=== PATIENT | female | born 1995 | race Caucasian/White ===

== ENCOUNTER 2017-07-09 21:27 | Emergency (ER) | payer OTHER ==
[~2017-07-09] VITALS: Ht 154.9 cm; Wt 88.4 kg
[2017-07-09 21:38] VITALS: TEMP 36.8; Ht 154.9 cm; Wt 88.4 kg
[2017-07-09] MEDS ORDERED: SODIUM CHLORIDE 0.9% 1000ML 1,000 ML IV STA (21:56)
[2017-07-09] MEDS ORDERED: KETOROLAC TROMETHAMINE 30 MG/ML VIAL IV STA (21:56)
[2017-07-09 22:20] LABS: BASO % 0.3 %; BASO ABS # 0.03 K/uL (0-0.2); COMPLETE YES; EOS % 2.3 %; HEMATOCRIT 35.4 % (37-47); IG% 0.2 %; LYMPH % 36.6 %; MEAN CELL VOLUME 76.1 fL (80-100); MEAN CORPUSCULAR HEMOGLOBIN 23.9 pg (25-34); MEAN CORPUSCULAR HGB CONC 31.4 g/dl (32-36); MONO % 6.9 %; NEUT % 53.7 %; PLATELET COUNT 307 K/uL (130-400); RED BLOOD COUNT 4.65 M/uL (4.2-5.4); WHITE BLOOD COUNT 10.65 K/uL (4.8-10.8)
[2017-07-09 22:43] LABS: ALT/SGPT 15 U/L (12-78); BLOOD UREA NITROGEN 22 mg/dl (7-18); BUN/CREATININE RATIO 28.8 (10-20); CALCIUM 9.1 mg/dl (8.5-10.1); CARBON DIOXIDE 24 mmol/L (21-32); CHLORIDE 105 mmol/L (98-107); CREATININE 0.77 mg/dl (0.60-1.20); GLUCOSE 85 mg/dl (70-99); POTASSIUM 3.8 mmol/L (3.5-5.1); SODIUM 137 mmol/L (136-145)
[2017-07-09 22:46] LABS: ALKALINE PHOSPHATASE 59 U/L (45-117); AST/SGOT 14 U/L (15-37)
[2017-07-09 23:36] LABS: URINE APPEARANCE CLEAR (CLEAR); URINE BILIRUBIN NEG (NEG); URINE COLOR YELLOW; URINE NITRITE NEG (NEG); URINE PH 5.5 (4.5-7.5); URINE SPECIFIC GRAVITY 1.035 (1.000-1.030); UROBILINOGEN NEG (NEG)
[2017-07-09 23:37] LABS: MANUAL MICROSCOPIC REQUIRED? NO; REVIEW REQ? NO
[2017-07-10 01:23] VITALS: BP 135/92; PULSE 78; O2SAT 98
--- NOTE | 2017-07-10 02:14 | EMERGENCY ROOM VISIT NOTE ---
History Report prepared by Tigre: Lani Mercado Under the Supervision of: Dr. Khurram Hackett M.D. First contact with patient: 21:52 Chief Complaint: FLANK PAIN Stated Complaint: SHARP PAIN L SIDE OF BACK History of Present Illness The patient is a 22 year old female who presents to the Emergency Room with complaints of worsening left flank pain starting 3 weeks ago. The pain as been intermittent and worsened recently. She describes the pain as sharp. She states that it feels like her previous kidney stone, but not as severe. She had some mild diarrhea yesterday which has resolved. No hematochezia. She denies any vomiting, fever, hematuria, or other urinary symptoms. She had a kidney stone 1 year ago which was diagnosed by ultrasound. She denies any chance of . She denies any history of hypertension. Source of History: patient Onset: 3 weeks ago Position: other (left flank) Quality: sharp Timing: worsening Associated Symptoms: + diarrhea, No fevers, No vomiting, No urinary symptoms Review of Systems See HPI for pertinent positives & negatives. A total of 10 systems reviewed and were otherwise negative. Past Medical & Surgical Medical Problems: (1) Kidney stones Family History No pertinent family history stated. Social History Smoking Status: Never Smoker Occupation Status: [employer] student Current/Historical Medications No Active Prescriptions or Reported Meds Allergies Coded Allergies: No Known Allergies (Unverified , 07/09/17) Physical Exam Vital Signs Date Time Temp Pulse Resp B/P (MAP) Pulse Ox O2 Delivery O2 Flow Rate FiO2 07/10/17 01:23 78 16 135/92 98 07/09/17 23:05 79 16 123/84 99 Room Air 07/09/17 21:38 36.8 82 18 148/97 99 Room Air Physical Exam Constitutional: Vital signs reviewed. Eyes: Pupils are equal round reactive to light. Conjunctiva are noninjected. ENT: Pharynx is clear without erythema or exudate. Mucous membranes are moist. Neck supple without meningeal signs. Respiratory: Clear to auscultation bilaterally. Breath sounds are equal bilaterally. Cardiovascular: Regular rate and rhythm. No rubs or gallops. GI: Soft, nondistended and nontender. Bowel sounds are present. Musculoskeletal: No peripheral edema. No CVA tenderness. Mild tenderness to the left flank. No midline tenderness to the lumbosacral spine. Integumentary: No cyanosis. Neurological: The patient is awake and alert. No focal deficits. Psychiatric: Normal affect. Medical Decision & Procedures ER Provider Diagnostic Interpretation: Radiology results as stated below per my review and the [facility] radiologist's interpretation: US renal: Unremarkable urinary tract ultrasound. CT abdomen & pelvis: 2 mm mid zone right renal calculus. No ureteral stone or hydronephrosis. Appendicolith. No findings of appendicitis. CT L spine: No fracture or malalignment. Laboratory Results 07/09/17 22:05 Red Blood Count 4.65, Mean Corpuscular Volume 76.1, Mean Corpuscular Hemoglobin 23.9, Mean Corpuscular Hemoglobin Concent 31.4, Mean Platelet Volume 10.0, Neutrophils (%) (Auto) 53.7, Lymphocytes (%) (Auto) 36.6, Monocytes (%) (Auto) 6.9, Eosinophils (%) (Auto) 2.3, Basophils (%) (Auto) 0.3, Neutrophils # (Auto) 5.72, Lymphocytes # (Auto) 3.90, Monocytes # (Auto) 0.73, Eosinophils # (Auto) 0.25, Basophils # (Auto) 0.03 07/09/17 22:05 Test 07/09/17 22:05 07/09/17 23:05 White Blood Count 10.65 K/uL (4.8-10.8) Red Blood Count 4.65 M/uL (4.2-5.4) Hemoglobin 11.1 g/dL (12.0-16.0) Hematocrit 35.4 % (37-47) Mean Corpuscular Volume 76.1 fL (80-100) Mean Corpuscular Hemoglobin 23.9 pg (25-34) Mean Corpuscular Hemoglobin Concent 31.4 g/dl (32-36) Platelet Count 307 K/uL (130-400) Mean Platelet Volume 10.0 fL (7.4-10.4) Neutrophils (%) (Auto) 53.7 % Lymphocytes (%) (Auto) 36.6 % Monocytes (%) (Auto) 6.9 % Eosinophils (%) (Auto) 2.3 % Basophils (%) (Auto) 0.3 % Neutrophils # (Auto) 5.72 K/uL (1.4-6.5) Lymphocytes # (Auto) 3.90 K/uL (1.2-3.4) Monocytes # (Auto) 0.73 K/uL (0.11-0.59) Eosinophils # (Auto) 0.25 K/uL (0-0.5) Basophils # (Auto) 0.03 K/uL (0-0.2) RDW Standard Deviation 50.6 fL (36.4-46.3) RDW Coefficient of Variation 18.0 % (11.5-14.5) Immature Granulocyte % (Auto) 0.2 % Immature Granulocyte # (Auto) 0.02 K/uL (0.00-0.02) Anion Gap 8.0 mmol/L (3-11) Est Creatinine Clear Calc Drug Dose 115.8 ml/min Estimated GFR () 127.0 Estimated GFR (Non- 109.6 BUN/Creatinine Ratio 28.8 (10-20) Calcium Level 9.1 mg/dl (8.5-10.1) Total Bilirubin < 0.1 mg/dl (0.2-1) Direct Bilirubin < 0.1 mg/dl (0-0.2) Aspartate Amino Transf (AST/SGOT) 14 U/L (15-37) Alanine Aminotransferase (ALT/SGPT) 15 U/L (12-78) Alkaline Phosphatase 59 U/L (45-117) Total Protein 7.4 gm/dl (6.4-8.2) Albumin 3.7 gm/dl (3.4-5.0) Lipase 181 U/L (73-393) Urine Color YELLOW Urine Appearance CLEAR (CLEAR) Urine pH 5.5 (4.5-7.5) Urine Specific [place] 1.035 (1.000-1.030) Urine Protein NEG (NEG) Urine Glucose (UA) NEG (NEG) Urine Ketones NEG (NEG) Urine Occult Blood NEG (NEG) Urine Nitrite NEG (NEG) Urine Bilirubin NEG (NEG) Urine Urobilinogen NEG (NEG) Urine Leukocyte Esterase NEG (NEG) Urine Test NEG (NEG) Laboratory results as reviewed by me. Medications Administered Medications (Trade) Dose Ordered Sig/Ori Route Start Time Stop Time Status Last Admin Dose Admin Ketorolac Tromethamine (Toradol Inj) 10 mg NOW STAT IV 07/09/17 21:56 07/09/17 21:58 DC 07/09/17 22:17 10 MG Sodium Chloride 1,000 ml @ 999 mls/hr Q1H1M STAT IV 07/09/17 21:56 07/09/17 22:56 DC 07/09/17 22:17 999 MLS/HR ED Course 2152: The patient was evaluated in room C3. A complete history and physical exam was performed. 2155: NSS 1000 ml @ 999 mls/hr IV, Toradol Inj 10 mg IV. 0002: I reevaluated the patient. I discussed the test results with her. I discussed the risks and benefits of a CT abdomen with her. She would like to have the CT. 0103: Upon reevaluation, the patient appeared to have improvement of her symptoms. I discussed tonight's findings with her. She verbalized agreement of the treatment plan. She was discharged home. Medical Decision This is a 22-year-old female who presents with left flank pain. Differential diagnosis includes strain, GI, pyelonephritis, hydronephrosis, renal colic, diverticulitis. I did perform a limited focused review of portions of the patient's old chart on the electronic medical record. The patient has had no prior visits to this hospital. I did evaluate the patient as noted above. IV access was established. I did treat patient with normal saline IV. She was also given Toradol IV. I did order and personally review the patient's urinalysis as described above. I did order and review the patient's blood work as noted in the electronic medical record. I did order an ultrasound of the kidneys and bladder. This showed no acute process. There is no hydronephrosis. I did reassess the patient and discussed her test results with her. I did discuss risks of CT scanning. She stated that she wanted to know what was going on and wanted CT despite the risks of radiation. I did order a CT of the abdomen and pelvis. I did review the images myself as well as the radiology report as described above. There is no acute process on CT scan. She was advised follow up closely with her doctor or [facility]. She was discharged in good condition. Medication Reconcilliation Current Medication List: was personally reviewed by me Blood Pressure Screening Patient's blood pressure: Elevated blood pressure Blood pressure disposition: Referred to PCP Impression Primary Impression: Left flank pain Scribe Attestation The scribe's documentation has been prepared under my direct and personally reviewed by me in its entirety. I confirm that the note above accurately reflects all work, treatment, procedures, and medical decision making performed by me. Departure Information Dispostion Home / Self-Care Prescriptions No Active Prescriptions or Reported Meds Referrals [facility] Forms HOME CARE DOCUMENTATION FORM, IMPORTANT VISIT INFORMATION Patient Instructions ED Flank Pain Uncertain Cause, My [facility] Additional Instructions You have been examined and treated today on an emergency basis only. This is not a substitute for, or an effort to provide, complete comprehensive medical care. It is impossible to recognize and treat all injuries or illnesses in a single emergency department visit. It is therefore important that you follow up closely with [facility]. Call as soon as possible for an appointment. Return for worsening symptoms or if you develop fever, vomiting, or any other concerning symptoms.
--- NOTE | 2017-07-10 05:45 | DIAGNOSTIC IMAGING REPORT ---
(RENAL)RETROPERITON COMP HISTORY: Pain left flank pain eval for stone COMPARISON: None. FINDINGS: Right kidney: Maximum linear dimension 11.4 cm. No evidence for hydronephrosis. Normal corticomedullary differentiation and cortical thickness. Left kidney: Maximum dimension 10.7 cm. No evidence for hydronephrosis. Normal corticomedullary differentiation and cortical thickness. Bladder: No bladder wall thickening. The bilateral ureteral jets were identified. IMPRESSION: Normal renal ultrasound. The above report was generated using voice recognition software. It may contain grammatical, syntax or spelling errors. Electronically signed by: Joel Hernadez M.D. 07/10/2017 5:44 AM Dictated Date/Time: 07/10/2017 5:43 AM
--- NOTE | 2017-07-10 06:13 | DIAGNOSTIC IMAGING REPORT ---
ABD/PELVIS WITHOUT FOR STONE CT DOSE: 1245.56 mGy.cm HISTORY: Pain left flank pain eval for sotne TECHNIQUE: Multiaxial CT images of the abdomen and pelvis were performed without the use of intravenous and oral contrast according to the standard department stone protocol. A dose lowering technique was utilized adhering to the principles of ALARA. COMPARISON STUDY: None. FINDINGS: The lung bases are clear. Liver spleen and pancreas are unremarkable. Gallbladder is negative for distention. 2. Nonobstructive mid pole right renal calcifications. No evidence for an obstructing urinary tract calculus. Appendicolith. Otherwise normal gallbladder. No sign of appendicitis. Bowel pattern is nonobstructive throughout. Bladder is midline. IMPRESSION: Nonobstructive right renal calcification. No evidence for an obstructing urinary tract calculus. Appendicolith. No evidence for appendicitis. The above report was generated using voice recognition software. It may contain grammatical, syntax or spelling errors. Electronically signed by: Joel Hernadez M.D. 07/10/2017 6:11 AM Dictated Date/Time: 07/10/2017 6:10 AM
--- NOTE | 2017-07-10 06:14 | DIAGNOSTIC IMAGING REPORT ---
LUMBAR SPINE WITHOUT CT DOSE: HISTORY: Pain. eval for disc dz. TECHNIQUE: Multiaxial CT images of the lumbar spine were performed and reformatted in the sagittal and coronal plane without the use of contrast. A dose lowering technique was utilized adhering to the principles of ALARA. COMPARISON: None. FINDINGS: No fractures. No subluxation. Paraspinal soft tissues are unremarkable. IMPRESSION: No fractures within the lumbar spine. The above report was generated using voice recognition software. It may contain grammatical, syntax or spelling errors. Electronically signed by: Joel Hernadez M.D. 07/10/2017 6:12 AM Dictated Date/Time: 07/10/2017 6:12 AM
== END 2017-07-10 01:24 | disposition home or self-care (01) ==
LOC: C.EDB 21:28 → C.EDC 07-10 01:24
DX: R10.32 Left lower quadrant pain (principal); Z87.442 Personal history of urinary calculi

== ENCOUNTER → 2017-07-28 | Outpatient (CLI) | payer OTHER ==
--- NOTE | 2017-07-28 11:33 | DIAGNOSTIC IMAGING REPORT ---
EXAMINATION: PELVIC ULTRASOUND (transabdominal and endovaginal scanning) CLINICAL HISTORY: PELVIC PAIN COMPARISON STUDY: CT scan of the abdomen pelvis dated 07/10/2017 FINDINGS: The uterus measured 6.1 x 3.1 x 4.8 cm. The endometrial stripe measured 7 mm. The right ovary measured 25 x 20 x 25 mm. The left ovary measured 30 x 21 x 22 mm. There is no ultrasonographic evidence of ovarian torsion. It should be noted that ovarian torsion can be present with normal Doppler ultrasonographic findings. There was no evidence of pathologic free pelvic fluid. IMPRESSION: Normal pelvic ultrasound. Electronically signed by: Rivera Patton M.D. 07/28/2017 11:32 AM Dictated Date/Time: 07/28/2017 11:31 AM
== END | disposition home or self-care (01) ==
LOC: C.ULTR 10:23
PROVIDERS: ATTEND Physician Assistant
DX: R10.2 Pelvic and perineal pain (principal)

== ENCOUNTER 2017-08-22 03:00 | Emergency (ER) | payer OTHER ==
[~2017-08-22] VITALS: Ht 154.9 cm; Wt 87.8 kg
[2017-08-22 03:06] VITALS: TEMP 36.8; Ht 154.9 cm; Wt 87.8 kg
[2017-08-22] MEDS ORDERED: DEXT1CAP PO (04:02)
[2017-08-22] MEDS ORDERED: IBUP-103 PO (04:02)
[2017-08-22] MEDS ORDERED: IBUPROFEN 600 MG TAB PO STA (04:52)
--- NOTE | 2017-08-22 04:56 | EMERGENCY ROOM VISIT NOTE ---
ED Visit Note First contact with patient: 04:44 CHIEF COMPLAINT: Sore throat, congestion 3 days HISTORY OF PRESENT ILLNESS: This 22-year-old female patient presents to the emergency department ambulatory, complaining of three-day history of a sore throat. The patient states her sore throat is getting worse and is now associated with congestion, bilateral earache, and headache. The patient states she has been intermittently taking DayQuil and Advil for her symptoms, however she has not taken them consistently despite the fact that they do help with her symptoms. She is uncertain of dosage is and how often. The patient denies any fever, chills, nausea, vomiting, body aches, or other concerning symptoms. She states she does have a cough and congestion, and her cough is nonproductive. Patient denies any purulent drainage, but states she does have rhinorrhea. Patient denies any significant puslike drainage from the throat or redness. REVIEW OF SYSTEMS: A 6 system review of systems was performed with positives and pertinent negatives listed in the history of present illness. All other systems were reviewed and are negative. ALLERGIES: None MEDICATIONS: None PMH: None SOCIAL HISTORY: The patient is a [employer] student. She denies drug, alcohol, tobacco use. PHYSICAL EXAM: VITALS: Vitals are noted on the nurse's note and reviewed by myself. Vital signs stable. GENERAL: This is a 22-year-old female, in no acute distress, nondiaphoretic, well-developed well-nourished. SKIN: The skin was without rashes, erythema, edema, or bruising. There is no tenting of the skin. Capillary reflex less than 2 seconds. HEAD: Normocephalic atraumatic. EARS: External auditory canals clear, tympanic membranes pearly narayan without erythema or effusion bilaterally. EYES: Pupils equal round and reactive to light and accommodation. Conjunctivae without injection, sclerae without icterus. Extraocular movements intact. NOSE: Patent, turbinates without inflammation. Clear rhinorrhea present. No sinus tenderness. MOUTH: Mucous membranes moist. Tonsils are not enlarged. Pharynx without erythema, edema, or exudate. Uvula midline. Airway patent. Tongue does not deviate. NECK: Supple without nuchal rigidity. Cervical lymphadenopathy. No thyromegaly. Cervical spine is nontender. No JVD. HEART: Regular rate and rhythm without murmurs gallops or rubs. LUNGS: Clear to auscultation bilaterally without wheezes, rales or rhonchi. No dullness to percussion. No retractions or accessory muscle use. MUSCULOSKELETAL: No muscle atrophy, erythema, or edema noted. Full range of motion without joint tenderness in all extremities. No tenderness to palpation. Normal gait. Strength 5/5 throughout. NEURO: Patient was alert and oriented to person place and time. Normal sensation to light and sharp touch. No focal neurological deficits. EMERGENCY DEPARTMENT COURSE: The patient was seen and evaluated as above. I discussed with her the difference between viral and bacterial illness. I advised her that based on her examination and symptoms at this time, I do suspect a viral upper respiratory infection. I did discuss with her that this can cause significant discomfort and sore throat. The patient is afebrile, and there are no abnormalities noted in her throat on examination. I do not have a high suspicion for strep pharyngitis based on the patient's examination and all of her symptoms. Discharge instructions were reviewed and I discussed at length the proper treatment and management for upper respiratory infection. The patient was discharged home in good condition. I attest that I have personally reviewed the patient's current medication list. Patient was found to have normal blood pressure on screening and does not require follow-up. DIFFERENTIAL DIAGNOSIS: Upper respiratory infection, bronchitis, pneumonia, strep pharyngitis, acute pharyngitis, otitis media, otitis externa, malignancy, pharyngeal abscess, and others DIAGNOSIS: Upper respiratory infection Problem List Medical Problems: (1) Kidney stones Status: Resolved Current/Historical Medications Scheduled PRN Dextromethorphan-Phenylephrine (Daytime Cold & Flu Relief 10-5-325 mg), 2 CAP PO UD PRN for cold Ibuprofen Tab (Advil), 400 MG PO Q4 PRN for Pain or Fever Allergies Coded Allergies: No Known Allergies (Unverified , 08/22/17) Vital Signs Date Time Temp Pulse Resp B/P (MAP) Pulse Ox O2 Delivery O2 Flow Rate FiO2 08/22/17 05:03 98 18 129/88 100 08/22/17 03:06 36.8 81 18 132/89 99 Room Air 08/22/17 03:06 99 Room Air Medications Administered Medications (Trade) Dose Ordered Sig/Ori Route Start Time Stop Time Status Last Admin Dose Admin Ibuprofen (Motrin Tab) 600 mg NOW STAT PO 08/22/17 04:52 08/22/17 04:53 DC 08/22/17 04:59 600 MG Departure Information Impression Primary Impression: Upper respiratory infection Dispostion Home / Self-Care Condition GOOD Referrals No Doctor, Assigned (PCP) [facility] Patient Instructions ED URI Viral, My [facility] Additional Instructions You were seen and evaluated in the emergency department today for an upper respiratory infection. I do feel that based on your symptoms, and the duration of illness, this is likely viral in nature. As discussed, antibiotics will not treat viral illness. For your sore throat, you may use a 1:1 mixture of liquid Benadryl and liquid Maalox. Gargle and spit this mixture. It will help to soothe the throat and provide some relief. Drink warm tea with honey and lemon, as this will also help to soothe the throat. Gargle with salt water frequently. As discussed, you should take OTC Mucinex and/or Sudafed for your symptoms. Please do not exceed the recommended daily dosages. Ibuprofen(Motrin, Advil) may be used for fever or pain. Use 600mg every six hours as needed. Take with food. Avoid using more than 2400mg in a 24 hour period. Do not use 2400mg per day for more than three consecutive days without physician direction. Prolonged inappropriate use can lead to stomach upset or ulcers. You may take Naproxen 1-2 tablets twice daily in place of ibuprofen. This medication will help with the swelling in your sinuses. (AND/OR) Acetaminophen(Tylenol) may be used for fever or pain. Use 1000mg every six hours as needed. Avoid using more than 3000mg in a 24 hour period. For congestion, you may use Flonase OTC. You may want to consider zinc, echinacea, and vitamin C to help boost your immunity. Please get plenty of rest and drink plenty of fluids. Please return or follow-up with your PCP in 1 week if you are not experiencing any improvement in your symptoms. Return to the emergency department for coughing up blood, difficulty breathing, chest pain, worsening symptoms, or for other concerns. Problem Qualifiers Primary Impression: Upper respiratory infection URI type: unspecified viral URI Qualified Codes: J06.9 - Acute upper respiratory infection, unspecified; B97.89 - Other viral agents as the cause of diseases classified elsewhere
[2017-08-22 05:03] VITALS: BP 129/88; PULSE 98; O2SAT 100
== END 2017-08-22 05:00 | disposition home or self-care (01) ==
LOC: C.EDB 03:01 → C.EDD 05:00
DX: J06.9 Acute upper respiratory infection, unspecified (principal)

== ENCOUNTER 2018-02-02 08:00 | Emergency (ER) | payer OTHER ==
[~2018-02-02] VITALS: Ht 154.9 cm; Wt 89.3 kg
[~2018-02-02 08:00] MED LIST: DEXT1CAP PO; IBUP-103 PO
[2018-02-02 08:01] VITALS: TEMP 36.7; Ht 154.9 cm; Wt 89.3 kg
[2018-02-02] MEDS ORDERED: ASPI325T45 PO (08:12)
[2018-02-02 08:48] VITALS: O2SAT 97
--- NOTE | 2018-02-02 08:49 | DIAGNOSTIC IMAGING REPORT ---
CHEST ONE VIEW PORTABLE CLINICAL HISTORY: Chest pain. COMPARISON STUDY: No previous studies for comparison. FINDINGS: Lung volumes are normal. No pneumothorax or pleural effusion is noted. Lungs are clear. Pulmonary vascularity is normal. Cardiomediastinal silhouette is normal. IMPRESSION: No acute cardiopulmonary findings. Electronically signed by: Lb Fernandez M.D. 02/02/2018 8:48 AM Dictated Date/Time: 02/02/2018 8:47 AM
[2018-02-02 08:50] LABS: BASO % 0.3 %; BASO ABS # 0.02 K/uL (0-0.2); EOS ABS # 0.22 K/uL (0-0.5); HEMATOCRIT 34.3 % (37-47); HEMOGLOBIN 11.3 g/dL (12.0-16.0); IG# 0.02 K/uL (0.00-0.02); LYMPH % 38.5 %; MEAN CELL VOLUME 78.3 fL (80-100); MEAN CORPUSCULAR HEMOGLOBIN 25.8 pg (25-34); MEAN CORPUSCULAR HGB CONC 32.9 g/dl (32-36); MEAN PLATELET VOLUME 9.8 fL (7.4-10.4); MONO % 8.8 %; MONO ABS # 0.64 K/uL (0.11-0.59); NEUT % 49.1 %; NEUT ABS # 3.57 K/uL (1.4-6.5); PLATELET COUNT 282 K/uL (130-400); RED CELL DISTRIBUTION WIDTH CV 16.5 % (11.5-14.5); RED CELL DISTRIBUTION WIDTH SD 47.3 fL (36.4-46.3); WHITE BLOOD COUNT 7.27 K/uL (4.8-10.8)
[2018-02-02 09:08] LABS: ALBUMIN 3.4 gm/dl (3.4-5.0); ALT/SGPT 18 U/L (12-78); BLOOD UREA NITROGEN 14 mg/dl (7-18); CALCIUM 8.3 mg/dl (8.5-10.1); CARBON DIOXIDE 24 mmol/L (21-32); CREATININE 0.62 mg/dl (0.60-1.20); GLUCOSE 95 mg/dl (70-99); LIPASE 151 U/L (73-393); POTASSIUM 3.7 mmol/L (3.5-5.1); SODIUM 139 mmol/L (136-145)
[2018-02-02 09:13] LABS: ALKALINE PHOSPHATASE 53 U/L (45-117); AST/SGOT 11 U/L (15-37); TOTAL PROTEIN 6.8 gm/dl (6.4-8.2)
[2018-02-02 10:28] VITALS: BP 92/63; PULSE 74; O2SAT 98
--- NOTE | 2018-02-02 15:19 | EMERGENCY ROOM VISIT NOTE ---
History First contact with patient: 08:15 Chief Complaint: CHEST PAIN Stated Complaint: CHEST PAIN Nursing Triage Summary: Relates that she had a chest pressure on Wednesday. She relates that the pain is constant. Initially, the pain had episodes of worsening. She relates that when it developed she was not doing anything active. She relates that she does become more short of breath with activity. She denies any injury. Today the pain is now radiating into the arm and feels like it is "pulling". History of Present Illness The patient is a 22 year old female who presents to the Emergency Room with complaints of left-sided chest discomfort radiating into the left upper arm. The patient reports that she started to experience left-sided chest discomfort Wednesday afternoon while watching television. The patient reports the pain then started to move to the central portion of the chest. She noticed that the breathing started to worsen her pain. She then started to develop discomfort radiating into the left upper extremity, not radiating below the elbow. She denies any neck or back pain. She denies shortness of breath, recent upper respiratory infections, cough, fevers or chills. She also denies any pain extending into the abdomen. She rates her discomfort a 5 out of 10. The patient denies any significant alleviating or aggravating factors for her pain. She describes her discomfort as a pressure sensation. She denies diaphoresis or nausea. Review of Systems HEENT: Denies dizziness, visual problems, hearing loss, tinnitus. Denies difficulty swallowing or oral lesions. PULMONARY: Denies cough, sputum production or hemoptysis, otherwise see HPI CARDIOVASCULAR: Denies palpitations, dyspnea on exertion, orthopnea or peripheral edema, otherwise see HPI. GASTROINTESTINAL: Denies diarrhea, constipation, nausea, vomiting, or abdominal pain. GENITOURINARY: Denies dysuria, frequency, urgency or nocturia. NEUROLOGIC: Denies history of epilepsy, CVA, TIA or chronic headaches. MUSCULOSKELETAL: Denies history of joint tenderness/swelling. SKIN: Denies rashes or lesions. PSYCHIATRIC: Denies history of depression or mental illness. ENDOCRINE: Denies history of diabetes or thyroid disorders. Past Medical/Surgical History Medical Problems: (1) Kidney stones Family History Unremarkable Social History Smoking Status: Never Smoker Alcohol Use: occasionally Marital Status: single Occupation Status: [employer] student Current/Historical Medications Scheduled PRN Dextromethorphan-Phenylephrine (Daytime Cold & Flu Relief 10-5-325 mg), 2 CAP PO UD PRN for cold Ibuprofen Tab (Advil), 400 MG PO Q4 PRN for Pain or Fever Miscellaneous Medications Aspirin (Aspirin), 650 MG PO Physical Exam Vital Signs Date Time Temp Pulse Resp B/P (MAP) Pulse Ox O2 Delivery O2 Flow Rate FiO2 02/02/18 10:28 74 20 92/63 98 02/02/18 09:30 62 16 103/60 97 Room Air 02/02/18 08:52 70 20 102/67 98 02/02/18 08:49 98 Room Air 02/02/18 08:49 71 02/02/18 08:48 97 Room Air 02/02/18 08:01 36.7 82 18 141/92 98 Room Air Physical Exam CONSTITUTIONAL: Healthy and well nourished. Alert and oriented X 3 with positive affect. Patient does not appear in any acute distress. HEENT: Normocephalic, atraumatic. Pupils equal, round and reactive. No conjunctival injection, scleral icterus or rhinorrhea. NECK: Full active range of motion without discomfort. No JVD or carotid bruits. LYMPHATICS: No cervical chain adenopathy noted. RESPIRATORY: Clear to auscultation bilaterally with no wheezing, crackles, rhonchi or stridor. CARDIOVASCULAR: Regular rate and rhythm with no murmurs, rubs or gallops. GASTROINTESTINAL: Bowel sounds present in all quadrants. Abdomen is soft and nontender to palpation without hepatosplenomegaly or epigastric/right upper quadrant tenderness to palpation. Negative CVA tenderness. No abdominal rigidity, guarding or rebound. Negative McBurney's point tenderness. MUSCULOSKELETAL: Full range of motion of all joints without discomfort. Patient has no reproducible pain with palpation across the anterior chest wall or costochondral joints. INTEGUMENTARY: No rash or other significant dermatologic conditions noted. HEMATOLOGIC: No ecchymosis or petechiae noted. NEUROLOGIC: No focal neurologic deficits noted. Medical Decision & Procedures ER Provider Diagnostic Interpretation: My interpretation of an ECG shows a normal sinus rhythm of [address] elevation or other conduction abnormalities. My interpretation of a portable chest x-ray does not show any consolidations or pneumothorax. Radiologist report is as follows: CHEST ONE VIEW PORTABLE CLINICAL HISTORY: Chest pain. COMPARISON STUDY: No previous studies for comparison. FINDINGS: Lung volumes are normal. No pneumothorax or pleural effusion is noted. Lungs are clear. Pulmonary vascularity is normal. Cardiomediastinal silhouette is normal. IMPRESSION: No acute cardiopulmonary findings. Laboratory Results 02/02/18 08:40 Red Blood Count 4.38, Mean Corpuscular Volume 78.3, Mean Corpuscular Hemoglobin 25.8, Mean Corpuscular Hemoglobin Concent 32.9, Mean Platelet Volume 9.8, Neutrophils (%) (Auto) 49.1, Lymphocytes (%) (Auto) 38.5, Monocytes (%) (Auto) 8.8, Eosinophils (%) (Auto) 3.0, Basophils (%) (Auto) 0.3, Neutrophils # (Auto) 3.57, Lymphocytes # (Auto) 2.80, Monocytes # (Auto) 0.64, Eosinophils # (Auto) 0.22, Basophils # (Auto) 0.02 02/02/18 08:40 Test 02/02/18 08:40 White Blood Count 7.27 K/uL (4.8-10.8) Red Blood Count 4.38 M/uL (4.2-5.4) Hemoglobin 11.3 g/dL (12.0-16.0) Hematocrit 34.3 % (37-47) Mean Corpuscular Volume 78.3 fL (80-100) Mean Corpuscular Hemoglobin 25.8 pg (25-34) Mean Corpuscular Hemoglobin Concent 32.9 g/dl (32-36) Platelet Count 282 K/uL (130-400) Mean Platelet Volume 9.8 fL (7.4-10.4) Neutrophils (%) (Auto) 49.1 % Lymphocytes (%) (Auto) 38.5 % Monocytes (%) (Auto) 8.8 % Eosinophils (%) (Auto) 3.0 % Basophils (%) (Auto) 0.3 % Neutrophils # (Auto) 3.57 K/uL (1.4-6.5) Lymphocytes # (Auto) 2.80 K/uL (1.2-3.4) Monocytes # (Auto) 0.64 K/uL (0.11-0.59) Eosinophils # (Auto) 0.22 K/uL (0-0.5) Basophils # (Auto) 0.02 K/uL (0-0.2) RDW Standard Deviation 47.3 fL (36.4-46.3) RDW Coefficient of Variation 16.5 % (11.5-14.5) Immature Granulocyte % (Auto) 0.3 % Immature Granulocyte # (Auto) 0.02 K/uL (0.00-0.02) D-Dimer < 190 ug/L FEU (0-500) Anion Gap 7.0 mmol/L (3-11) Est Creatinine Clear Calc Drug Dose 144.6 ml/min Estimated GFR () 148.3 Estimated GFR (Non- 128.0 BUN/Creatinine Ratio 22.2 (10-20) Calcium Level 8.3 mg/dl (8.5-10.1) Total Bilirubin 0.2 mg/dl (0.2-1) Direct Bilirubin < 0.1 mg/dl (0-0.2) Aspartate Amino Transf (AST/SGOT) 11 U/L (15-37) Alanine Aminotransferase (ALT/SGPT) 18 U/L (12-78) Alkaline Phosphatase 53 U/L (45-117) Total Creatine Kinase 61 U/L (26-192) Creatine Kinase MB 1.0 ng/ml (0.5-3.6) Creatine Kinase MB Ratio 1.6 (0-3.0) Troponin I < 0.015 ng/ml (0-0.045) Total Protein 6.8 gm/dl (6.4-8.2) Albumin 3.4 gm/dl (3.4-5.0) Lipase 151 U/L (73-393) ED Course Patient history and physical exam were performed. Nurse's notes were reviewed. Vital signs were reviewed, showing a mildly elevated blood pressure of 141/ 92. The patient denied any significant discomfort on initial exam. IV access was established, and labs were drawn. ECG and portable chest x-ray were performed and were normal. Review of labs shows a normal d-dimer, troponin, CBC , LFTs and lipase. The patient denied any worsening discomfort while in the emergency department. The case was further discussed with Dr. Deutsch, ED attending physician, who recommended outpatient cardiology follow-up. The patient was provided contact information for the [facility] cardiology office. She was instructed to follow-up with him within the next 2-3 days. Return to the emergency department for any progressively worsening pain, shortness of breath, fever, hemoptysis or other concerning symptoms. The patient was happy with plan of care, and voiced understanding of all discharge instructions. It is noted that the patient's blood pressure was normal at the time of discharge. Medical Decision Patient presents to the emergency department with complaint of left-sided chest pain radiating into the left upper extremity. Workup today is not suggestive of myocardial infarction, pulmonary embolus, pneumonia or pneumothorax. Laboratory studies are also not suggestive of abdominal referred pain from pancreatitis, cholecystitis or hepatitis. X-rays do not suggest pneumothorax, congestive heart failure or consolidations. Cervical radiculitis is also considered. I also considered musculoskeletal chest wall pain as well, but she does not have any reproducible pain with palpation of the chest. Medication Reconcilliation Current Medication List: was personally reviewed by me Blood Pressure Screening Patient's blood pressure: Elevated blood pressure Blood pressure disposition: Elevated BP felt to be situational Impression Primary Impression: Left sided chest pain Additional Impression: Shortness of breath Departure Information Referrals [facility] (PCP) Patient Instructions My [facility] Problem Qualifiers
== END 2018-02-02 10:46 | disposition home or self-care (01) ==
LOC: C.EDB 08:01
DX: R07.89 Other chest pain (principal); R06.02 Shortness of breath; Z87.442 Personal history of urinary calculi